=== PATIENT | female | born 1970 | race Caucasian/White ===

== ENCOUNTER 2017-07-22 02:41 | Emergency (ER) | payer OTHER ==
--- NOTE | 2017-07-22 03:10 | ED Physician Documentation ---
General Adult - HISTORIAN Historian: patient - HPI Chief Complaint: General Adult (near syncope) Additional Information: Patient has a history of hypertension. Was taking a different medication for it. She stopped that medication and started Lisinopril and HCTZ 05/05.5 yesterday. This evening became nauseated, got up and had a syncopal episode. NO chest pain or pressure noted. No further nausea. Is using some form of contraception. Has not had any previous syncopal or near syncopal episode. Patient denies any palpitations or bradycardia that she is aware. Patient is not had any chest pain or chest pressure. Patient denies any history of seizure disorder. Onset: minutes Timing: still present Further Comments: no - ROS CONST: no problems - PAST HX Past History: hypertension Other History: none Surgeries/Procedures: none Allergies/Adverse Reactions: Allergies Allergy/AdvReac Type Severity Reaction Status Date / Time No Known Allergies Allergy Verified 07/22/17 04:03 Home Medications: Ambulatory Orders Medication Instructions Recorded Baclofen [Lioresal] 10 mg PO TID 07/22/17 Lisinopril/Hydrochlorothiazide 1 each PO DAILY 07/22/17 [Zestoretic] - SOCIAL HX Smoking History: non-smoker Alcohol Use: none Drug Use: none - FAMILY HX Family History: No - REVIEWED ASSESSMENTS Nursing Assessment Reviewed: Yes Vitals Reviewed: Yes General Adult Physical Exam - PHYSICAL EXAM GENERAL APPEARANCE: no distress EENT: eye inspection normal, ENT inspection normal, pharynx normal NECK: normal inspection, supple. No: thyroid normal, lymphadenopathy, stiff neck RESPIRATORY: no resp distress, chest non-tender, breath sounds normal. No: wheezes, rales, rhonchi CVS: reg rate & rhythm, heart sounds normal, equal pulses, no murmur, no gallop ABDOMEN: soft, no organomegaly, normal bowel sounds, no abdominal bruit BACK: normal inspection, no CVA tenderness SKIN: warm/dry, normal color EXTREMITIES: non-tender, normal range of motion NEURO: oriented X3, CN's nml as tested, mood/affect nml, cognition normal Discharge Clincal Impression: Syncope Qualifiers: Syncope type: unspecified Qualified Code(s): R55 - Syncope and collapse Hypertension Qualifiers: Hypertension type: essential hypertension Qualified Code(s): I10 - Essential ( primary) hypertension Referrals: Delialh Espinoza MD [Primary Care Provider] - 2 Days Additional Instructions: Drink a lot of fluids. Contact your primary care provider tomorrow and see what she wants to do about your BP medications. Condition: Stable Disposition: 01 HOME, SELF-CARE Decision to Admit: NO Date of Decison to Admit: 07/22/17 Decision Time: 04:08
[2017-07-22 03:53] LABS: BASOPHILS % 0.4 (0.0-1.5); EOSINOPHILS % 2.4 % (0.0-6.8); MEAN CORPUSCULAR HEMOGLOBIN 31.3 pg (28.0-34.0); MEAN CORPUSCULAR VOLUME 92.6 fl (80.0-100.0); NEUTROPHILS # 14.1 # k/uL (1.4-7.7)
[2017-07-22 04:03] LABS: eGFR (African) > 60; eGFR (Non-African) > 60
[2017-07-22 05:54] VITALS: BP 107/71
== END 2017-07-22 04:20 | disposition home or self-care (01) ==
LOC: ED 02:41
DX: R55 Syncope and collapse (principal); I10 Essential (primary) hypertension
CPT/HCPCS: 80053; 85025; 99282